=== PATIENT | female | born 1970 | race Caucasian/White ===

== ENCOUNTER → 2017-06-21 | Outpatient (CLI) | payer BC ==
[~2017-06-21] MED LIST: ACHD5005 PO; AMLO10TA82 PO; BRITH CONTROL PO; DCS100C PO; FRSM40T PO; HYDR-3454 PO; IBP600T1 PO; LBT200T PO; LVT.1T PO; METH10TA82 PO; MTP100TCR PO; OMEP-10 PO; OXYC-12 PO; POTA10TA86 PO; PREN1TAB39 PO; PROP20TA5 PO
--- NOTE | 2017-06-21 16:36 | Diagnostic Imaging Report ---
INDICATION: Right-sided abdominal pain, history of cholecystectomy. Right upper quadrant ultrasound is performed in the routine fashion. The liver shows normal echogenicity with no focal lesions. Portal vein is patent with flow in the normal direction towards the liver. Gallbladder is surgically absent. Common duct is obscured by bowel but no intrahepatic biliary dilatation is seen. Pancreas is also obscured by bowel. Right kidney is normal measuring 11.4 cm in length. There is no ascites. IMPRESSION: Status post cholecystectomy. Common bile duct is not well seen, but there is no intrahepatic biliary dilatation. If clinical symptoms warrant, consider MRCP due to the limited nature of the study. Dictated by: Dictated on workstation # [id number]
== END ==
LOC: RAD 15:40
PROVIDERS: ATTEND Nurse Practitioner Family
DX: R10.11 Right upper quadrant pain (principal); Z90.49 Acquired absence of other specified parts of digestive tract
CPT/HCPCS: 76705

== ENCOUNTER → 2017-07-10 | Outpatient (CLI) | payer BC ==
[~2017-07-10] MED LIST changes: +BARIUM SUSPENSION 2.1% (VANILLA SILQ) 450 ML PO ONE; +CATHETER FLUSH 10 ML SYR IV PRN; +IOHEXOL 350 MG/ML 100 ML (OMNIPAQUE 350) VIAL IV ONE; +NS 100 ML (IVPB) BAG IV ONE
--- NOTE | 2017-07-10 16:07 | Diagnostic Imaging Report ---
PROCEDURE: CT abdomen and pelvis with contrast. TECHNIQUE: Multiple contiguous axial images were obtained through the abdomen and pelvis after administration of intravenous contrast. INDICATION: Right upper quadrant pain along with left lower quadrant pain. COMPARISON: 10/01/2014. FINDINGS: Lower chest: The lung bases are clear. No pericardial or pleural effusion. Peritoneum: No free intraperitoneal air or fluid. Liver and biliary system: No focal hepatic lesion. Low-attenuation of the liver is present diffusely. Cholecystectomy. Spleen and Pancreas: Spleen is normal. The pancreas enhances normally without mass lesion or peripancreatic inflammatory changes. Adrenals: Normal. tract: The kidneys enhance normally without suspicious mass or obstruction. Urinary bladder is decompressed. Stable dystrophic intramural calcification in the uterine fundus compatible with intramural fibroid. No adnexal mass. GI tract: Stomach is normally distended with contrast material and there is no abnormal wall thickening. No bowel obstruction. No pericolonic inflammatory changes. Appendix is either surgically absent or congenitally small and there are no features of acute appendicitis. Vasculature and Lymph nodes: Normal caliber aorta. No abdominal or pelvic lymphadenopathy. Musculoskeletal: No concerning osseous lesion. IMPRESSION: 1. No acute inflammatory or obstructive process in the abdomen or pelvis. 2. Potential diffuse hepatic steatosis. 3. Stable calcified intramural uterine fibroid. No adnexal mass. Dictated by: Dictated on workstation # [id number]
== END ==
LOC: RAD 14:47
PROVIDERS: ATTEND Surgery
DX: D25.1 Intramural leiomyoma of uterus (principal); K76.0 Fatty (change of) liver, not elsewhere classified
CPT/HCPCS: 74177

== ENCOUNTER → 2017-09-12 | Outpatient (CLI) | payer BC ==
[~2017-09-12] MED LIST changes: -BARIUM SUSPENSION 2.1% (VANILLA SILQ) 450 ML PO ONE; -CATHETER FLUSH 10 ML SYR IV PRN; -IOHEXOL 350 MG/ML 100 ML (OMNIPAQUE 350) VIAL IV ONE; -NS 100 ML (IVPB) BAG IV ONE
--- NOTE | 2017-09-12 14:15 | Diagnostic Imaging Report ---
INDICATION: Abdominal pain The patient was administered a solid test meal with 1.0 mCi Tc 99M sulfur colloid used for labeling of the meal. Region of interest curves were drawn over the stomach with the percent of retained activity calculated at hourly timed intervals for a total of 4 hours. A time activity curve was generated. FINDINGS: Percent retention as follows: (percent of administered activity retained within the stomach): 1.0 hour: 16% <30% = Rapid, >90% = Delayed 2.0 hour: 6% >60% = Abnormally Delayed 3.0 hour: 5% >30% = Abnormally Delayed 4.0 hour: 2% >10% = Abnormally Delayed IMPRESSION: There is rather prompt gastric emptying. At the one hour timeframe, there is considered abnormally rapid emptying. Dictated by: Dictated on workstation # [id number]
== END ==
LOC: CARD 08:35
PROVIDERS: ATTEND Internal Medicine Gastroenterology
DX: R10.84 Generalized abdominal pain (principal)
CPT/HCPCS: 78264

== ENCOUNTER → 2018-11-05 | Outpatient (CLI) | payer BC ==
--- NOTE | 2018-11-05 12:34 | Diagnostic Imaging Report ---
INDICATION: Routine screening. COMPARISON: No prior mammograms are available for comparison. TECHNIQUE: 2D and 3D bilateral screening mammography was performed with CAD. FINDINGS: Scattered fibroglandular densities are identified bilaterally. No dominant mass or malignant appearing microcalcifications are seen. The axillae are unremarkable. IMPRESSION: No mammographic features suspicious for malignancy are identified. ACR BI-RADS Category 1: Negative. Result letter will be mailed to the patient. Note: At least 10% of breast cancer is not imaged by mammography. Dictated by: Dictated on workstation # [id number]
== END ==
LOC: RAD 10:47
PROVIDERS: ATTEND Nurse Practitioner Family
DX: Z12.31 Encounter for screening mammogram for malignant neoplasm of breast (principal)
CPT/HCPCS: 77067

== ENCOUNTER 2020-03-01 08:38 | Emergency (ER) | payer BC ==
[~2020-03-01] VITALS: Ht 157.5 cm; Wt 104.3 kg
[2020-03-01 08:45] VITALS: BP 173/103
--- NOTE | 2020-03-01 09:11 | ED General ---
General Chief Complaint: General Problems/Pain Stated Complaint: L UPPER SIDE PAIN Nursing Triage Note: PT AMB TO [facility] WITH COMPLAINT OF LEFT SIDE PAIN AFTER SNEEZING. STATES WAS DIAGNOSED WITH ALLERGIES AND EAR INFECTION YESTERDAY AT [facility]ALK [facility] CLINIC AND PRESCRIBED AUGMENTIN. Nursing Sepsis Screen: No Definite Risk Source of Information: Patient Exam Limitations: No Limitations History of Present Illness Date Seen by Provider: Mar 01, 2020 Time Seen by Provider: 08:50 Initial Comments This a 49-year-old woman presents to the emergency room with primary complaint of left anterior lower chest wall pain after sneezing and coughing. She has had upper respiratory infection symptoms for the past several days including ear congestion, sinus drainage, cough, and runny nose. She has had some change in taste but no loss of taste or smell. She was seen in a clinic yesterday and prescribed Augmentin. She did not have a Covid test performed. She is afebrile with stable vital signs. She has tenderness over the lower anterior left chest wall. She reports hearing/feeling a pop at the onset of pain. Allergies and Home Medications Allergies Coded Allergies: No Known Drug Allergies (Unverified , 12/02/10) Home Medications Levothyroxine Sodium 100 Mcg Tablet, 100 MCG PO DAILY, (Reported) Metoprolol Succinate 100 Mg Tab.sr.24h, 100 MG PO BID, (Reported) 9AM AND 7PM Omeprazole 20 Mg Capsule.dr, 20 MG PO DAILY Prescribed by: SMITA SLAUGHTER on 08/12/14 1351 [[facility]] , 1 TAB PO DAILY, (Reported) Patient Home Medication List Home Medication List Reviewed: Yes Review of Systems Review of Systems Constitutional: no symptoms reported EENTM: see HPI Respiratory: see HPI Cardiovascular: no symptoms reported Gastrointestinal: no symptoms reported Genitourinary: no symptoms reported : No Musculoskeletal: see HPI Skin: no symptoms reported Psychiatric/Neurological: No Symptoms Reported Hematologic/Lymphatic: No Symptoms Reported Immunological/Allergic: no symptoms reported Past Bnihkjw-Yhkrlm-Bdlhxu Hx Past Med/Social Hx: Reviewed Nursing Past Med/Soc Hx Patient Social History Alcohol Use: Denies Use Recreational Drug Use: No Smoking Status: Never a Smoker Recent Foreign Travel: No Contact w/Someone Who Travel: No Recent Infectious Disease Expo: No Recent Hopitalizations: No Immunizations Up To Date Tetanus Booster (TDap): Unknown PED Vaccines UTD: Yes Date of Pneumonia Vaccine: Mar 27, 2012 Date of Influenza Vaccine: Nov 25, 2013 Past Medical History Surgeries: Yes Thyroidectomy Respiratory: No Cardiac: Yes Hypertension Neurological: No Reproductive Disorders: No Gastrointestinal: Yes Musculoskeletal: No Endocrine: Yes (HX THYROID/THYROIDECTOMY) Hyperthyroidism Cancer: No Psychosocial: No Integumentary: No Blood Disorders: No Adverse Reaction/Blood Tranf: No Family Medical History Cancer 19 MOTHER (UTERINE) Family history: Cardiovascular disease 19 FATHER Family history: Hypertension 19 FATHER History of - respiratory disease 19 MOTHER (COPD) Prostate cancer 19 FATHER Physical Exam Vital Signs Vital Signs - First Documented 03/01/20 08:45 Temp 37.1 Pulse 94 Resp 20 B/P (MAP) 173/103 (126) Pulse Ox 94 O2 Delivery Room Air Capillary Refill : Less Than 3 Seconds Height, Weight, BMI Height: 5'4.00" Weight: 206lbs. 0.0oz. 93.074601pm; 42.00 BMI Method: General Appearance: No Apparent Distress, WD/WN, Obese HEENT: PERRL/EOMI, Other (Rhinorrhea) Neck: Normal Inspection Respiratory: Lungs Clear, Normal Breath Sounds, No Accessory Muscle Use, No Respiratory Distress, Other (Tenderness over the anterior lower costal margin of the left chest) Cardiovascular: Regular Rate, Rhythm, No Edema, No Murmur Gastrointestinal: Normal Bowel Sounds, Non Tender, Soft Extremity: Normal Inspection, No Pedal Edema Neurologic/Psychiatric: Alert, Oriented x3, No Motor/Sensory Deficits, Normal Mood/Affect, yeast pumper II-XII Norm as Tested Skin: Normal Color, Warm/Dry Progress/Results/Core Measures Suspected Sepsis Recent Fever Within 48 Hours: No Infection Criteria Present: None New/Unexplained Altered Menta: No Sepsis Screen: No Definite Risk SIRS Temperature: Pulse: 94 Respiratory Rate: 20 Blood Pressure 173 /103 Mean: 126 Results/Orders Lab Results Laboratory Tests Test 03/01/20 09:00 Range/Units My Orders Orders - MARCELLE CHACKO MD Coronavirus Sars-Cov-2 So 2018 (03/01/20 09:05) Vital Signs/I&O 03/01/20 08:45 Temp 37.1 Pulse 94 Resp 20 B/P (MAP) 173/103 (126) Pulse Ox 94 O2 Delivery Room Air Capillary Refill : Less Than 3 Seconds Blood Pressure Mean: 126 Progress Note : Progress Note The abdomen was nontender. The tenderness was just to the left of the sternum on the lower left anterior chest wall. This would be overlying the primarily cartilaginous portion of the chest wall. Therefore, x-ray was not felt to be reported tool in her assessment. I advised analgesia with ibuprofen and Tylenol. Additionally, she was offered Covid screening because of her URI symptoms. She excepted that invitation and a PCR test was collected. Departure Impression Primary Impression: Chest wall pain Additional Impressions: Upper respiratory infection Qualified Codes: J06.9 - Acute upper respiratory infection, unspecified Person under investigation for COVID-19 Disposition: HOME, SELF-CARE Condition: Stable Departure-Patient Inst. Decision time for Depature: 09:08 Referrals: GABY GRAY DO (PCP/Family) Primary Care Physician Patient Instructions: Costochondritis, Coronavirus Disease 2019 (COVID-19) Overview Add. Discharge Instructions: Remain in quarantine until the result of your COVID-19 test is known. You may continue the antibiotic as previously prescribed. Your chest wall pain is likely caused by inflammation in the rib cage, possibly at the junction between the ribs and cartilage. You may take ibuprofen up to 600 mg every 6 hours as needed and/or Tylenol (acetaminophen) up to 1000 mg every 6 hours as needed. The pain should gradually improve with these measures. If the pain does not resolve within the next 10 days, please follow-up with your primary care provider. Return to the emergency room if you have worsening symptoms or develop new symptoms such as shortness of breath, fever, etc. All discharge instructions reviewed with patient and/or family. Voiced understanding. Work/School Note: Work Release Form Date Seen in the Emergency Department: Mar 01, 2020 Return to Work: Mar 03, 2020 Restrictions: Return-No Fever (24hrs) Other Restrictions Listed Below: If Covid neg, return to work when free of fever or significant symptom 24hr Restrictions: If Covid positive, remain in quarantine until released by the health depart MARCELLE CHACKO MD Mar 01, 2020 09:11
== END 2020-03-01 09:22 | disposition home or self-care (01) ==
LOC: EDUNIT# 08:38 → ER 08:39
DX: R07.89 Other chest pain (principal); J06.9 Acute upper respiratory infection, unspecified; I10 Essential (primary) hypertension; E66.9 Obesity, unspecified; E05.90 Thyrotoxicosis, unspecified without thyrotoxic crisis or storm; Z20.828 Contact with and (suspected) exposure to other viral communicable diseases; Z68.41 Body mass index [BMI] 40.0-44.9, adult; Z82.49 Family history of ischemic heart disease and other diseases of the circulatory system; Z80.49 Family history of malignant neoplasm of other genital organs; Z79.890 Hormone replacement therapy
CPT/HCPCS: 99281; U0002; 87635

== ENCOUNTER → 2020-04-24 | Outpatient (CLI) | payer BC ==
[~2020-04-24] VITALS: Ht 160 cm; Wt 104.5 kg
[~2020-04-24] MED LIST changes: +BAMLANIVIMAB (NON FORM) 700 MG in NS (IVPB) 250 ML IV ONE; +EPINEPHrine INJECTION 1 MG/ML AMP IM PRN; +diphenhydrAMINE 50 MG/ML INJ (BENADRYL) IV PRN
[2020-04-24 11:45] VITALS: BP 119/82
[2020-04-24 14:05] VITALS: BP 134/74
== END ==
LOC: INFUSION 11:47
PROVIDERS: ATTEND Nurse Practitioner Family
DX: J06.9 Acute upper respiratory infection, unspecified (principal); I10 Essential (primary) hypertension; Z20.822 Contact with and (suspected) exposure to COVID-19

== ENCOUNTER → 2021-01-28 | Outpatient (CLI) | payer BC ==
[~2021-01-28] MED LIST changes: -BAMLANIVIMAB (NON FORM) 700 MG in NS (IVPB) 250 ML IV ONE; -EPINEPHrine INJECTION 1 MG/ML AMP IM PRN; -diphenhydrAMINE 50 MG/ML INJ (BENADRYL) IV PRN
--- NOTE | 2021-01-28 11:29 | Diagnostic Imaging Report ---
INDICATION: Cough, dyspnea EXAMINATION: Two-view chest 01/28/21 COMPARISON: 02/07/2015 FINDINGS: FINDINGS: The cardiomediastinal silhouette is unremarkable. The pulmonary vasculature is within normal limits. The lungs and pleural spaces are clear. IMPRESSION: No evidence of an acute cardiopulmonary process. Dictated by: Dictated on workstation # [id number]
== END ==
LOC: RAD 10:37
PROVIDERS: ATTEND Family Medicine
DX: R07.9 Chest pain, unspecified (principal); R06.00 Dyspnea, unspecified
CPT/HCPCS: 71046

== ENCOUNTER → 2021-01-28 | Outpatient (CLI) | payer BC ==
[2021-01-28 15:52] LABS: BASOPHILS # (AUTO) 0.1 10^3/uL (0.0-0.1); BASOPHILS % (AUTO) 1 % (0-10); EOSINOPHILS # (AUTO) 0.3 10^3/uL (0.0-0.3); EOSINOPHILS % (AUTO) 2 % (0-10); HEMATOCRIT 39 % (35-52); HEMOGLOBIN 12.6 g/dL (11.5-16.0); LYMPHOCYTES # (AUTO) 2.7 10^3/uL (1.0-4.0); LYMPHOCYTES % (AUTO) 20 % (12-44); MEAN CORPUSCULAR HEMOGLOBIN 27 pg (25-34); MEAN CORPUSCULAR HGB CONC 32 g/dL (32-36); MEAN CORPUSCULAR VOLUME 84 fL (80-99); MEAN PLATELET VOLUME 10.4 fL (9.0-12.2); MONOCYTES # (AUTO) 0.8 10^3/uL (0.0-1.0); MONOCYTES % (AUTO) 6 % (0-12); NEUTROPHILS % (AUTO) 69 % (42-75); PLATELET COUNT 279 10^3/uL (130-400); WHITE BLOOD COUNT 13.1 10^3/uL (4.3-11.0)
[2021-01-28 16:12] LABS: ALBUMIN 3.9 GM/DL (3.2-4.5); BILIRUBIN,TOTAL 0.6 MG/DL (0.1-1.0); CALCIUM 8.6 MG/DL (8.5-10.1); CREATININE SERUM 0.86 MG/DL (0.60-1.30); POTASSIUM 3.4 MMOL/L (3.6-5.0); TOTAL PROTEIN 7.3 GM/DL (6.4-8.2)
== END ==
LOC: LAB 15:28
PROVIDERS: ATTEND Family Medicine
DX: R00.0 Tachycardia, unspecified (principal); R06.00 Dyspnea, unspecified; R05.9 Cough, unspecified; R50.9 Fever, unspecified
CPT/HCPCS: 36415; 80053; 83880; 85025; 85379